=== PATIENT | female | born 1980 | race Two or more races ===

== ENCOUNTER 2021-09-23 14:43 | Outpatient (REF) | payer OTHER, SELFPAY ==
[2021-09-23 15:26] LABS: Influenza A PCR NEGATIVE (Negative); Influenza B PCR NEGATIVE (Negative); Resp Syncy Virus RNA Qual PCR NEGATIVE (Negative); SARS COV2 PCR INHOUSE NEGATIVE (Negative)
== END 2021-09-23 14:44 | disposition home or self-care (01) ==
LOC: HO.LNP 14:43
PROVIDERS: Visit Provider Internal Medicine
DX: Z20.822 Contact with and (suspected) exposure to COVID-19 (principal); R43.9 Unspecified disturbances of smell and taste
CPT/HCPCS: 0241U

== ENCOUNTER 2024-05-04 08:23 | Outpatient (AMB) | payer OTHER, SELFPAY ==
--- NOTE | 2024-05-04 08:26 | A.OFFPC_ITS ---
Vital Signs 05/04/24 08:38 Height 4 ft 11 in Weight 135 lb BMI 27.3 BP 104/70 Blood Pressure Location Lt brachial Position Sitting Pulse 74 Pulse Source Pulse Oximeter Pulse Oximetry (%) 97 Oxygen Delivery Method Room Air Intake Visit Reasons: Annual PE Intake Note: Pt is here today for her PE: Last papsmear 06/2023: pt never had a mammogram Allergies shellfish derived [SHELLFISH DERIVED] Allergy (Severe, Verified 05/04/24 08:42) ANAPHYLAXIS prochlorperazine [From COMPAZINE] Allergy (Unknown, Verified 05/04/24 08:42) ANAPHYLAXIS, seizures Compazine Allergy (Unknown, Uncoded 05/04/24 08:42) seizures shellfish Allergy (Unknown, Uncoded 05/04/24 08:42) anaphylaxis Medication List - Last Reconciled 05/04/24 by Doris José MD albuterol sulfate 90 mcg/actuation (ProAir HFA) 2 puffs inhalation Q6H PRN cetirizine 10 mg PO DAILY eszopiclone 1 mg PO BEDTIME levonorgestrel (Mirena) intrauterine lorazepam 0.5 mg PO DAILY montelukast 10 mg PO DAILY sertraline mg PO Tobacco use date assessed: 05/04/24 Dental Screening Dental Screen Date: 05/04/24 Did you have a dental visit in the last 12 months?: Yes Did you have a dental problem in the last 6 months where you did not have access to dental care?: No Was dental information given to patient?: Patient has dentist HPI Annual PE HPI Details 43-year-old lady here today for physical exam. She goes to [facility] for her routine Pap and pelvic exam, last done 08/12/2022 with normal findings. Currently on Mirena for control. Never had a mammogram screening. Has had COVID vaccines in the past but no booster, stopped getting flu vaccines, no Tdap seen on mass registry for vaccine She currently is being [facility], for chronic urticaria, rhino conjunctivitis, and mild intermittent asthma as well as shellfish allergy. On montelukast and Zyrtec, which has not been helping much, has an appointment with [facility] later this month, still waiting for her Xolair prescription to get filled. Needs refills on her albuterol inhaler once ProAir not Ventolin inhaler Still having recurrent low back pain, previously seen at [facility] pain management and received epidural steroid injection L4-L5 in the past, lost to follow-up after COVID started . Complains of pain in her left wrist, worse towards the end of the day. 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 Pain shoots to the middle 3 fingers accompanied by numbness and tingling and sometimes up to the elbow. Has been having recurrent anterior knee pain, worse with jogging, sometimes going up and down stairs feels like it is going to give way. No history of injury [facility] Medical History (Updated 05/04/24 @ 09:28 by Doris José MD) Right anterior knee pain Left wrist pain Depression with anxiety Lumbar spondylosis Shellfish allergy Allergic rhinoconjunctivitis Chronic urticaria Mild intermittent asthma Surgical History (Updated 05/04/24 @ 09:23 by Doris José MD) No pertinent past surgical history Family History (Updated 05/04/24 @ 09:26 by Doris José MD) Maternal Grandfather Colon cancer Father Bronchial asthma Paternal Grandfather Acute myocardial infarction Social History (Updated 05/04/24 @ 09:27 by Doris José MD) Housing: Condominium Patient Tobacco Use Status: Never used Tobacco e-Cigarette/Vaping Use: Never Used service: No Current occupational status: employed Current occupation: materials management manager Cognitive needs: No Hearing needs: No Vision needs: Yes Female Reproductive History Menstrual control method: progestin IUCD Date of last pap smear: 08/12/22 (Done at [facility] was not [facility], negative result) Questionnaire PHQ-9 Over the last 2 weeks, how often have you been bothered by any of the following problems? 1. Little interest or pleasure in doing things: not at all 2. Feeling down, depressed, or hopeless: not at all 3. Trouble falling or staying asleep, or sleeping too much: not at all 4. Feeling tired or having little energy: not at all 5. Poor appetite or overeating: not at all 6. Feeling bad about yourself - or that you are a failure or have let yourself or your family down: not at all 7. Trouble concentrating on things, such as reading the newspaper or watching television: not at all 8. Moving or speaking so slowly that other people could have noticed. Or the opposite - being so fidgety or restless that you have been moving around a lot more than usual: not at all 9. Thoughts that you would be better off or of hurting yourself in some way: not at all Total score: 0 Depression Screening Interpretation: Negative Depression Screening Done: Yes 72103 - PHQ-9 Billing: Yes Source: Developed by Drs. Michele Moseley, Nayla Meng, Narendra Godoy and colleagues, with an educational ellen from [employer] Thrive Questionnaire I am a: Patient What is your living situation today?: I have a steady place to live Within the past 12 months, did the food you bought not last and you didn't have the money to get more?: Never true Within the past 12 months, did you worry whether your food would run out before you got money to buy more?: Never true Do you have trouble paying for medicines?: No Do you have trouble getting transportation to medical appointments?: No Do you have trouble paying your heating and electricity bill?: No Do you have trouble taking care of your child, family member or friend?: No Do you have trouble with day-to-day activities such as bathing, preparing meals, shopping, managing finances, etc.?: No Are you currently unemployed and looking for a job?: No Are you interested in more education?: No Please select the resources that you would like help with: Housing/Long Term Currently or been in a relationship where the following occur: No concerns reported THRIVE Score: 0 AUDIT C Alcohol Use Questionnaire (AUDIT-C) 1. How often do you have a drink containing alcohol?: Never Total Score: 0 BRIJESH-7 AMB Questionnaire BRIJESH-7 Feeling nervous, anxious, or on edge: 0 = Not at all Not being able to stop or control worryin = Not at all Worrying too much about different things: 0 = Not at all Trouble relaxin = Not at all Being so restless that it is hard to sit still: 0 = Not at all Becoming easily annoyed or irritable: 0 = Not at all Feeling afraid as if something awful might happen: 0 = Not at all Total BRIJESH-7 score (0-4 normal; 5-9 mild; 10-14 moderate; 15-21 severe): 0 Source: Developed by Drs. Michele Moseley, Nayla Meng, Narendra Godoy and colleagues, with an educational ellen from [employer] BRIJESH-7 Assessment Billing BRIJESH-7 Assessment Tool: BRIJESH-7 Assessment 33817 Review of Systems Const Denies body aches, Denies fatigue, Denies fever(s), Denies headache(s) and Denies weakness Eyes Denies change in vision, Denies eye discharge, Denies itchy eyes and Reports req uires corrective lenses ENT Denies dizziness, Denies headache(s), Denies nasal congestion, Denies nasal discharge and Denies sore throat Card Denies chest pain, Denies lightheadedness, Denies palpitations and Denies dyspnea Resp Denies chest congestion, Denies cough, Denies dyspnea and Denies wheezing GI Denies abdominal pain, Denies change in bowel habits and Denies heartburn Denies hematuria, Denies urinary frequency, Denies dysuria and Denies urinary urgency Musc Reports as per HPI Skin/Breast Denies breast pain, Denies breast mass, Denies lesions and Denies rash Neuro Denies dizziness, Denies headache(s) and Denies weakness Psych Details: Followed at [facility] in [place] Reports no additional complaints Endo Denies fatigue, Denies polydipsia, Denies polyuria and Denies palpitations Thaddeus/Lymph Denies easy bruising Aller/Immun Denies itchy eyes, Denies seasonal rhinorrhea and Denies wheezing Physical exam (Primary Care) BMI result Body Mass Index 27.3 Tobacco/Smoking Status: Tobacco use Status Tobacco use date assessed 05/04/24 05/04/24 08:41 Patient Tobacco Use Status Never used Tobacco 05/04/24 08:41 e-Cigarette/Vaping Use Never Used 05/04/24 08:41 PHQ-9: PHQ-9 Score PHQ-9: Total score 0 05/04/24 08:26 Depression Screening Interpretation: Negative Currently or been in a relationship where the following occur: No concerns reported Advance Care Planning discussion: Completed/Scanned Date of discussion: 05/04/24 Who was present: Patient Forms completed: Health Care Proxy Time spent: 16-45 minutes Actual minutes spent: 16 Const General: no acute distress and alert Nutritional Appearance: average body habitus Orientation/consciousness: patient oriented x3 HENMT Head: Yes normocephalic and Yes atraumatic Ears: external ears normal, TM's normal bilaterally and EAC's normal General nose exam: Normal external nose present and No nasal discharge present Face and sinus: Yes face symmetric Mouth: Normal oral and palatal mucosa present, lip normal, tongue normal, oropharynx normal and moist mucous membranes Eyes Other: Wears corrective lenses General: appearance normal, both eyes and all related structures Alignment and Position: alignment normal Eyelids: Yes eyelids normal Conjunctivae: conjunctivae normal Sclerae: sclerae normal Pupils: Equal, round and reactive pupils present EOM: EOMs intact bilaterally Neck Neck: Yes full ROM, Yes no lymphadenopathy and Yes supple Thyroid: Thyroid normal Chest Breast/axilla inspection: normal inspection of the breasts Breast/axilla palpation: normal palpation of the breasts Resp Effort & Inspection: normal respiratory effort and able to speak in complete sentences Auscultation: clear to auscultation bilaterally Cardio Rate: regular rate Rhythm: regular rhythm Heart sounds: S1 normal heart sound present and S2 normal heart sound present GI Palpation (GI): Soft to palpation, nontender, no guarding and no masses Auscultation: normal bowel sounds General: Yes no CVA tenderness Back/Spine/Pelvis Back: no CVA tenderness and No back tenderness Skin General skin exam: no rashes or lesions noted Neuro General: patient oriented x3, gait normal, moves all extremities, Normal light touch and pain sensation, no focal motor deficits and CN's II-XI intact bilaterally Cranial nerves: Yes Equal, round and reactive pupils present Cognition (Neuro): normal cognition Gait exam (Neuro): Normal gait present Motor exam (neuro): 5/5 motor strength present throughout Extrem Other: No gross bone deformity, no joint swelling seen, slight crepitus noted on right knee Positive Phalen sign left, negative Tinel's General: Yes normal to inspection, Yes full ROM, Yes no joint enlargement, Yes no pedal edema and Yes normal gait Psych Appearance: grossly normal and well kempt Mental Status: mental status grossly normal Speech and movement: Normal speech and movement present Affect: normal affect Attitude: cooperative Thought process: Normal thought process present Thought content: Normal thought content present Immunizations Boostrix Tdap 2.5 Lf unit-8 mcg-5 Lf/0.5 mL intramuscular syringe Performing Provider: Doris José MD Performing Location: [facility] Administered by: Christa Strauss CMA on 05/04/24 08:56 Dose Route Admin Location Dispensed Lot Number Expiration Date NDC [place] 0.5 mL IM Left Deltoid 0.5 mL [id number] 05/20/26 [id number] [employer] VIS Given Date VIS Provided VIS Publication Date 05/04/24 Single Vaccine 21 Eligibility Eligibility Date Funding Source Not VFC Eligible 05/04/24 Private Assessment and Plan Assessment & Plan (1) Advanced directives, counseling/discussion: Code(s): Z71.89 - Other specified counseling Plan: Initiated the conversation about Advanced Directives. Advanced Directives help patients prepare for current and future decisions about their medical treatment and place of care. Discussed with patient that it is a process where a patients current condition and prognosis are reviewed, their wishes for information regarding their illness are elicited, and likely medical dilemmas are presented and options discussed. Healthcare proxy form completed today The form can be amended as needed, reviewed yearly and make changes as needed (2) Annual visit for general adult medical examination with abnormal findings: Code(s): Z00.01 - Encounter for general adult medical examination with abnormal findings Plan: Will check appropriate labs. Recommended dental visit every 6 months and regular eye exams, at least every 2 years. Take adequate calcium in diet and vitamin-D 3 at 2000 IU per cap once a day, in addition to weight-bearing exercises to help maintain good muscle tone and weight control. Instructed to do self-breast exam, and recommended to get yearly mammogram, scheduled reminded to get flu shot, has had COVID vaccine does not want to get the booster, up-to-date with Tdap, given today. Has not had her pneumonia vaccine yet, will give it on next visit (3) Shellfish allergy: Code(s): Z91.013 - Allergy to seafood (4) Allergic rhinoconjunctivitis: Code(s): J30.9 - Allergic rhinitis, unspecified; H10.10 - Acute atopic conjunctivitis, unspecified eye Plan: Currently [facility], currently on cetirizine and montelukast (5) Chronic urticaria: Code(s): L50.8 - Other urticaria Plan: Previously on Xolair, waiting for prescription to be approved, currently on montelukast and Zyrtec which has not really been helping, followed at [facility] (6) Mild intermittent asthma: Code(s): J45.20 - Mild intermittent asthma, uncomplicated Qualifiers: Asthma complication type: uncomplicated Qualified Code(s): J45.20 - Mild intermittent asthma, uncomplicated Plan: Refill prescription for ProAir inhaler (7) Left wrist pain: Code(s): M25.532 - Pain in left wrist Plan: Ordered nerve conduction study, prescription sent for left wrist brace to wear at night, may try applying Salonpas patch to affected area once or twice a day, or up massaged diclofenac gel to affected area 4 times a day as needed. Advised to rest affected joint, avoid flexion of wrist when sleeping at night (8) Right anterior knee pain: Code(s): M25.561 - Pain in right knee Plan: X-ray of right knee ordered may try massaging diclofenac gel to affected joint 3 to 4 times a day as needed (9) Depression with anxiety: Comment: [facility] in [place] Code(s): F41.8 - Other specified anxiety disorders Plan: Followed by psychiatry at [facility], doing well on lorazepam as needed and sertraline Orders: Orders Lipid Panel Today H10.10 - Acute atopic conjunctivitis, unspecified eye, J30.9 - Allergic rhinitis, unspecified, J45.20 - Mild intermittent asthma, un complicated, L50.8 - Other urticaria, Z00.01 - Encounter for general adult medical examination with abnormal findings, Z13.1 - Encounter for screening for diabetes mellitus, Z13.220 - Encounter for screening for lipoid disorders, Z91.013 - Allergy to seafood Vitamin D 25-OH Total Today H10.10 - Acute atopic conjunctivitis, unspecified eye, J30.9 - Allergic rhinitis, unspecified, J45.20 - Mild intermittent asthma, uncomplicated, L50.8 - Other urticaria, Z00.01 - Encounter for general adult medical examination with abnormal findings, Z13.1 - Encounter for screening for diabetes mellitus, Z13.220 - Encounter for screening for lipoid disorders, Z91.013 - Allergy to seafood MM tomosynthesis screening BI Today Z12.31 - Encounter for screening mammogram for malignant neoplasm of breast NE nerve conduction velocity Today M25.532 - Pain in left wrist XR knee RT 4V Today M25.561 - Pain in right knee TDaP Immunization Today Z23 - Encounter for immunization Alanine Aminotransferase Today H10.10 - Acute atopic conjunctivitis, unspecifi ed eye, J30.9 - Allergic rhinitis, unspecified, J45.20 - Mild intermittent asthma, uncomplicated, L50.8 - Other urticaria, Z00.01 - Encounter for general adult medical examination with abnormal findings, Z13.1 - Encounter for screening for diabetes mellitus, Z13.220 - Encounter for screening for lipoid disorders, Z91.013 - Allergy to seafood Aspartate Amino Transferase Today H10.10 - Acute atopic conjunctivitis, unspecified eye, J30.9 - Allergic rhinitis, unspecified, J45.20 - Mild intermittent asthma, uncomplicated, L50.8 - Other urticaria, Z00.01 - Encounter for general adult medical examination with abnormal findings, Z13.1 - Encounter for screening for diabetes mellitus, Z13.220 - Encounter for screening for lipoid disorders, Z91.013 - Allergy to seafood Basic Metabolic Panel Fasting Today H10.10 - Acute atopic conjunctivitis, unspecified eye, J30.9 - Allergic rhinitis, unspecified, J45.20 - Mild intermittent asthma, uncomplicated, L50.8 - Other urticaria, Z00.01 - Encounter for general adult medical examination with abnormal findings, Z13.1 - Encounter for screening for diabetes mellitus, Z13.220 - Encounter for screening for lipoid disorders, Z91.013 - Allergy to seafood Complete Blood Count Auto Diff Today H10.10 - Acute atopic conjunctivitis, unspecified eye, J30.9 - Allergic rhinitis, unspecified, J45.20 - Mild intermittent asthma, uncomplicated, L50.8 - Other urticaria, Z00.01 - Encounter for general adult medical examination with abnormal findings, Z13.1 - Encounter for screening for diabetes mellitus, Z13.220 - Encounter for screening for lipoid disorders, Z91.013 - Allergy to seafood Medications: New arm brace (Wrist Brace Medium) As directed 1 ea 0RF M25.532 - Pain in left wrist Changed From albuterol sulfate 90 mcg/actuation (ProAir HFA) 2 puffs inhalation Q6H PRN To albuterol sulfate 90 mcg/actuation Patient wants ProAir HFA 2 puffs inhalation Q6H PRN 8.5 grams 0RF shortness of breath or wheezing Coding Level of Care Code Est Pt Prev Care 40-64y(83335) Diagnoses Advanced directives, counseling/discussion Z71.89 Annual visit for general adult medical examination with abnormal findings Z00.01 Shellfish allergy Z91.013 Allergic rhinoconjunctivitis J30.9; H10.10 Chronic urticaria L50.8 Mild intermittent asthma without complication J45.20 Asthma complication type: uncomplicated Left wrist pain M25.532 Right anterior knee pain M25.561 Depression with anxiety F41.8 Additional Codes BRIJESH-7 Assessment Billing - BRIJESH-7 Assessment Tool: BRIJESH-7 Assessment 26857 ([id number]) Vital Signs *Quality* - Advance Care Planning discussion: Completed/Scanned ([id number]) Vital Signs *Quality* - Time spent: 16-45 minutes ([id number])
[2024-05-04 08:38] VITALS: BP 104/70; PULSE 74; O2SAT 97; BMI 27.3
== END 2024-05-04 09:25 | disposition home or self-care (01) ==
PROVIDERS: PCP Internal Medicine; Visit Provider Internal Medicine
DX: Z00.01 Encounter for general adult medical examination with abnormal findings (principal); J45.20 Mild intermittent asthma, uncomplicated; J30.9 Allergic rhinitis, unspecified; Z23 Encounter for immunization; Z91.013 Allergy to seafood; L50.8 Other urticaria; M25.532 Pain in left wrist; M25.561 Pain in right knee; F41.8 Other specified anxiety disorders
CPT/HCPCS: 1123F; 90471; 90715; 99214; 99396; 99497

== ENCOUNTER 2024-05-04 09:22 | Outpatient (REF) | payer OTHER, SELFPAY ==
--- NOTE | ~2024-05-04 | XR_ITS ---
EXAMINATION: XR KNEE, RIGHT CLINICAL INFORMATION: Right knee pain. COMPARISON: None available. TECHNIQUE: Four views of the right knee. FINDINGS: Alignment is anatomic. Joint spaces are maintained. No displaced fracture. No significant joint effusion. XR/XR knee RT 4V IMPRESSION: No acute abnormality.
[2024-05-04 10:06] LABS: MANUAL DIFF FLAG NO
[2024-05-04 10:09] LABS: Basophils Percent Auto 0.2 % (0-2); Eosinophils Absolute Auto 0.2 X10*3/uL (0.0-0.4); Eosinophils Percent Auto 3.9 % (0-4); Hematocrit 39.9 % (37.0-47.0); Hemoglobin 13.6 g/dl (12.0-16.0); Imm Gran Abs Auto 0.02 X10*3/uL (0.00-0.03); Imm Gran Pct Auto 0.3 % (0.0-0.4); Lymphocytes Absolute Auto 2.5 X10*3/uL (1.2-4.9); Lymphocytes Percent Auto 42.9 % (20-40); Mean Corpuscular HGB Conc 34.1 g/dl (31.0-35.0); Mean Corpuscular Hemoglobin 30.4 pg (27.0-33.0); Mean Corpuscular Volume 89.3 fL (80.0-98.0); Mean Platelet Volume 9.4 fL (9.4-12.3); Monocytes Absolute Auto 0.5 X10*3/uL (0.1-1.2); Monocytes Percent Auto 7.8 % (2-11); Neutrophils Absolute Auto 2.7 x10*3/uL (2.0-8.3); Neutrophils Percent Auto 44.9 % (45-73); Platelet Count 240 X10*3/uL (160-400); Red Blood Count 4.47 X10*6/uL (4.20-5.50); Red Cell Distribution Width 12.4 % (11.0-16.0); White Blood Count 5.9 X10*3/uL (4.8-10.8)
[2024-05-04 11:20] LABS: Alanine Aminotransferase 22 U/L (0-31); Anion Gap 10 (12-20); Aspartate Amino Transferase 19 U/L (5-31); Blood Urea Nitrogen 13 mg/dL (9-16); Calcium 9.2 mg/dL (8.4-10.2); Carbon Dioxide 26 mmol/L (22-29); Chloride 106 mmol/L (96-108); Cholesterol 218 mg/dL (<200); Estimated Glomerular Filt Rate > 60; Glucose Fasting 89 mg/dL (60-99); HDL Cholesterol 42 mg/dL (>40); LDL Cholesterol Calculated 154 mg/dL (<100); Potassium 3.6 mmol/L (3.3-5.1); Sodium 138 mmol/L (135-145); Triglycerides 111 mg/dL (<150)
[2024-05-04 11:39] LABS: Vitamin D 25-OH Total 16.5 ng/mL (>30)
== END 2024-05-04 09:23 | disposition home or self-care (01) ==
LOC: HO.HMGCX 09:22
PROVIDERS: PCP Internal Medicine; Visit Provider Internal Medicine
DX: M25.561 Pain in right knee (principal); J45.20 Mild intermittent asthma, uncomplicated; L50.8 Other urticaria; J30.9 Allergic rhinitis, unspecified; H10.10 Acute atopic conjunctivitis, unspecified eye; Z91.013 Allergy to seafood; Z13.220 Encounter for screening for lipoid disorders; Z13.1 Encounter for screening for diabetes mellitus; Z00.01 Encounter for general adult medical examination with abnormal findings
CPT/HCPCS: 36415; 73564; 80048; 80061; 82306; 84450; 84460; 85025

== ENCOUNTER 2024-05-30 08:03 | Outpatient (REF) | payer OTHER, SELFPAY ==
--- NOTE | 2024-05-30 08:05 | EMG_ITS ---
Left median and ulnar motor and sensory studies were performed. Left radial sensory study was performed. The left median and lateral antecubital brachial sensory studies were performed and paraspinal muscles were tested with a needle. IMPRESSION: Mild left ulnar nerve slowing across elbow. Otherwise, no significant abnormality noted. MD ROSA Suero/KAYLA / [id number]
== END 2024-05-30 08:04 | disposition home or self-care (01) ==
LOC: HO.NEURO 08:03
PROVIDERS: PCP Internal Medicine; Visit Provider Internal Medicine
DX: M25.532 Pain in left wrist (principal)
CPT/HCPCS: 95886; 95910

== ENCOUNTER → 2024-06-17 10:15 | Outpatient (BNV) | payer OTHER, SELFPAY | PROVIDERS: PCP Internal Medicine; Visit Provider Internal Medicine | DX: Z12.31 Encounter for screening mammogram for malignant neoplasm of breast (principal) | CPT/HCPCS: 77063; 77067 ==

== ENCOUNTER 2024-06-17 10:26 | Outpatient (REF) | payer OTHER, SELFPAY ==
--- NOTE | ~2024-06-17 | MM_ITS ---
EXAMINATION: MM SCREENING DIGITAL BREAST TOMOSYNTHESIS, BILATERAL CLINICAL INFORMATION: Screening. Asymptomatic. COMPARISON: Mammography: Comparison is made with available priors TECHNIQUE: Digital breast mammography with tomosynthesis is performed in both the craniocaudal and mediolateral oblique views along with computer-aided detection (CAD). FINDINGS: There are scattered areas of fibroglandular density (ACR BI-RADS breast composition Category b). There are no significant masses, abnormal calcifications, or other abnormalities. MM/MM tomosynthesis screening BI IMPRESSION: No mammographic evidence of malignancy. ASSESSMENT: BI-RADS BI-RADS 1 - Negative RECOMMENDATION: Routine annual mammography screening. 1 year F/U This examination should not preclude the clinical evaluation of a suspicious palpable abnormality. This patient's information was entered into a reminder system with a target due date for their next mammogram. Electronically signed by: Moraima Stone DO 06/30/2024 08:55 AM EDT
== END 2024-06-17 10:27 | disposition home or self-care (01) ==
LOC: HO.MAMMO 10:26
PROVIDERS: PCP Internal Medicine; Visit Provider Internal Medicine
DX: Z12.31 Encounter for screening mammogram for malignant neoplasm of breast (principal)
CPT/HCPCS: 77063; 77067

== ENCOUNTER 2025-06-23 10:45 | Outpatient (REF) | payer OTHER, SELFPAY ==
--- NOTE | ~2025-06-23 | MM_ITS ---
EXAMINATION: MM SCREENING DIGITAL BREAST TOMOSYNTHESIS, BILATERAL CLINICAL INFORMATION: Screening. Asymptomatic. COMPARISON: Mammography: Comparison is made with available priors TECHNIQUE: Digital breast mammography with tomosynthesis is performed in both the craniocaudal and mediolateral oblique views along with computer-aided detection (CAD). FINDINGS: There are scattered areas of fibroglandular density (ACR BI-RADS breast composition Category b). There are no significant masses, abnormal calcifications, or other abnormalities. MM/MM tomosynthesis screening BI IMPRESSION: No mammographic evidence of malignancy. ASSESSMENT: BI-RADS BI-RADS 1 - Negative RECOMMENDATION: Routine annual mammography screening. 1 year F/U This examination should not preclude the clinical evaluation of a suspicious palpable abnormality. This patient's information was entered into a reminder system with a target due date for their next mammogram. Electronically signed by: Moraima Stone DO 06/26/2025 02:36 PM EDT
--- OUTSIDE RECORDS SUMMARY | 2025-06-23 10:48 | XMS_ITS | Clinical Summary ---
Author Organization [facility] Address [address] [place] [address] Care Team Providers Care Scrap Kettle Tender Name Role Phone Lenny Louie MD Primary Care Provider [phone] Allergies Active Allergy Reactions Criticality Noted Date Comments Prochlorperazine Other (See Comments) Low Pt unsure of reaction at thistime Iodine Hives Medium 02/17/2022 Phenothiazines Other (See Comments) Low 02/17/2022 Pt unsure of reaction but does not take Shellfish Anaphylaxis High 03/04/2022 Medications Medication Sig Dispensed Refills Start Date End Date Status eszopiclone (LUNESTA) 2 MG TABS 0 04/15/2022 Active albuterol (ACCUNEB) 0.63 MG/3ML nebulizer soln (NICU) by Inhaled route 4 (four) times a day as needed. 0 Active LORazepam (ATIVAN) 0.5 MG tablet TAKE ONE (1) TABLET BY MOUTH ONCE A DAY, NEEDED FOR SEVERE ANXIETY. USE SPARINGLY. 0 03/25/2023 Active cetirizine (ZyrTEC) 10 MG tablet Take 1 tablet (10 mg total) by mouth daily. 0 12/22/2023 Active montelukast (SINGULAIR) 10 MG tablet Take 1 tablet (10 mg total) by mouth every night at bedtime. 0 12/22/2023 Active Active Problems Problem Noted Date Diagnosed Date Chronic urticaria 02/17/2022 Social History Tobacco Use Types Packs/Day Years Used Date Smoking Tobacco: Never Assessed Sex and Gender Information Value Date Recorded Sex Assigned at Female 02/12/2022 4:12 PM EDT Gender Identity Not on file Sexual Orientation Not on file Job Start Date Occupation Industry Not on file Not on file Not on file Last Filed Vital Signs Vital Sign Reading Time Taken Comments Blood Pressure 116/71 01/28/2024 1:00 PM EDT Pulse 94 01/28/2024 1:00 PM EDT Temperature 36.8 C (98.2 F) 01/28/2024 1:00 PM EDT Respiratory Rate 18 01/28/2024 1:00 PM EDT Oxygen Saturation 100% 01/28/2024 1:00 PM EDT Inhaled Oxygen Concentration - - Weight 56.1 kg (123 lb 9.6 oz) 01/28/2024 1:00 P M EDT Height 149.9 cm (4' 11 ) 01/28/2024 1:00 PM EDT Body Mass Index 24.96 01/28/2024 1:00 PM EDT Plan of Treatment Health Maintenance Due Date Last Done Comments Hepatitis B Vaccines (1 of 3 - 3-dose series) 1981 Hepatitis C Screening 1981 Depression Screening 1993 BMI Counseling 1999 Preventative Health Evaluation 1999 DTap / Tdap / Td (1 - Tdap) 2000 Cervical Cancer Screening (P ap Smear) 2002 COVID-19 Vaccine (2024-2 6 season) 2025 02/14/2021 Influenza Vaccine (#1) 2025 07/19/2008 Pneumococcal Vaccine Aged Out No long er eligible based on patient's age to complete this topic RSV Ped < 20 months Aged Out No longe r eligible based on patient's age to complete this topic Care Teams Scrap Kettle Tender Relationship Specialty Start Date End Date Lenny Louie MD [address] [place] [address] [place] [address] PCP - General Internal Medicine 01/20/24
--- OUTSIDE RECORDS SUMMARY | 2025-06-23 10:48 | XMS_ITS ---
[facility] Name [facility] Care Team Organization Name Specialty Phone Email Start Date End Da te [facility] INA SALGADO Primary Care 08/11/2022 05/22/20 24
--- OUTSIDE RECORDS SUMMARY | 2025-06-23 10:48 | XMS_ITS | Patient Health Record ---
Author Organization Formerly [facility] enter Address [address] [place] [id number] Support Name Relationship Address Phone Miky Quigley Guarantor Unknown Reason For Referral No Information Immunizations Vaccine Route Administration Date Status Comme nts COVID-19 Vaccine(Moderna) 1st dose IM Intramuscular 01/14/2021 Administered COVID-19 Vaccine(Moderna) 2nd dose Unknown 02/14/2021 Administered Per verbal repor t of pt Plan Of Treatment No Information Insurance Providers Payer Name Payer Address Payer Phone Subscriber Number Group Number Insured Name Patient Relationship to Insured Coverage Start Date Coverage End Date Medicare A NGS PPS UB [address] [place] [id number] Miky Quigley Self - patient is the insured
--- OUTSIDE RECORDS SUMMARY | 2025-06-23 10:48 | XMS_ITS | Clinical Summary ---
[facility] Organization [facility] Address [address] [place] [address] Care Team Providers Care [employer] Biology Teacher Name Role Phone Lenny Louie MD Primary Care Provider Surgical History Surgery Date Site/Laterality Comments SECTION PROCEDURE: HISTORICAL DELIVERY; COMMENT: two Medical History Medical History Date Comments Asthma DX:Asthma Family History Medical History Relation Name Comments Celiac disease Father Coronary artery disease Father's side 1 u ncles with [place] Celiac disease Sister 1 Breast cancer Neg Hx Colon cancer Neg Hx Diabetes Neg Hx Relation Name Status Comments Brother Alive Father Alive Father's side 1 Father's side 2 Mother Alive Sister 1 Sister 2 Alive Sister 3 Alive Sister 4 Alive Social History Tobacco Use Types Packs/Day Years Used Date Smoking Tobacco: Never Smokeless Tobacco: Never Alcohol Use Standard Drinks/Week Comments No 0 (1 standard drink = 0.6 oz pur e alcohol) Comments Unknown Sex and Gender Information Value Date Recorded Sex Assigned at Not on file Legal Sex Female 1:09 PM EST Gender Identity Not on file Sexual Orientation Not on file Obstetrics History Plan of Treatment Health Maintenance Due Date Last Done Comments Breast Cancer Screening 1981 DTaP,Tdap,and Td Vaccines (1 - Tdap) 2000 Hepatitis B Vaccines (1 of 3 - 19+ 3-dose series) 2000 Cervical Cancer Screening: P ap Smear 2002 HIV Screening 09/16/2022 Hepatitis C Screening 09/16/2022 Social Influencers of Health Screening 09/16/2022 Depression Screening 10/04/2024 COVID-19 Vaccine ( - 2023-2 5 season) 2025 Influenza Vaccine (#1) 2025 07/19/2008 HIB Vaccines Aged Out No longer eligi ble based on patient's age to complete this topic HPV Vaccines Aged Out No longer eligi ble based on patient's age to complete this topic Hepatitis A Vaccines Aged Out No long er eligible based on patient's age to complete this topic IPV Vaccines Aged Out No longer eligi ble based on patient's age to complete this topic MMR Vaccines Aged Out No longer eligi ble based on patient's age to complete this topic Meningococcal ACWY Vaccine Aged Out N o longer eligible based on patient's age to complete this topic Meningococcal B Vaccine Aged Out No l onger eligible based on patient's age to complete this topic Pneumococcal Vaccine: Pediat rics (0 to 5 Years) and At-Risk Patients (6 to 49 Years) Aged Out No longer eligi ble based on patient's age to complete this topic RSV Immunization Patients Un shiela 20 months Aged Out No longer eligible b ased on patient's age to complete this topic Varicella Vaccines Aged Out No longer eligible based on patient's age to complete this topic Care Teams High School Biology Teacher Relationship Specialty Start Date End Date Lenny Louie MD [address] [place] [address] Dr [address] IMANI Rasmussen PCP - General 01/20/24
== END 2025-06-23 10:46 | disposition home or self-care (01) ==
LOC: HO.MAMMO 10:45
PROVIDERS: PCP Internal Medicine; Visit Provider Internal Medicine
DX: Z12.31 Encounter for screening mammogram for malignant neoplasm of breast (principal)
CPT/HCPCS: 77063; 77067

== ENCOUNTER → 2025-06-23 10:45 | Outpatient (BNV) | payer OTHER, SELFPAY | PROVIDERS: PCP Internal Medicine; Visit Provider Internal Medicine | DX: Z12.31 Encounter for screening mammogram for malignant neoplasm of breast (principal) | CPT/HCPCS: 77063; 77067 ==

== ENCOUNTER 2025-07-18 16:00 | Outpatient (AMB) | payer OTHER, SELFPAY ==
--- NOTE | 2025-07-18 16:02 | A.OFFPC_ITS ---
Vital Signs 07/18/25 16:07 Height 4 ft 11 in Weight 142 lb BMI 28.7 BP 112/80 Blood Pressure Location Lt brachial Position Sitting Respiration 16 Pulse 89 Pulse Source Pulse Oximeter Pulse Oximetry (%) 100 Oxygen Delivery Method Room Air Intake Visit Reasons: PE Intake Note: Pt is here today for her PE: Last mammogram 06/23/25, papsmear 08/12/22 Gathering Machine Feeder Required: No Allergies shellfish derived (SHELLFISH DERIVED) Allergy (Severe, Verified 07/18/25 16:23) ANAPHYLAXIS prochlorperazine (From COMPAZINE) Allergy (Unknown, Verified 07/18/25 16:23) ANAPHYLAXIS, seizures Compazine Allergy (Unknown, Uncoded 07/18/25 16:23) seizures shellfish Allergy (Unknown, Uncoded 07/18/25 16:23) anaphylaxis Medication List - Last Reconciled 07/18/25 by Doris José MD albuterol sulfate 90 mcg/actuation 2 puffs inhalation Q6H PRN albuterol sulfate 90 mcg/actuation (ProAir RespiClick) 2 inhalations inhalation Q6H PRN arm brace (Wrist Brace Medium) As directed cetirizine 10 mg PO DAILY eszopiclone 3 mg PO BEDTIME PRN levonorgestrel (Mirena) intrauterine lorazepam 0.5 mg PO DAILY montelukast 10 mg PO DAILY omalizumab (Xolair) 300 mg subcut Q4W Tobacco use date assessed: 07/18/25 Dental Screening Dental Screen Date: 07/18/25 Did you have a dental visit in the last 12 months?: Yes Did you have a dental problem in the last 6 months where you did not have access to dental care?: No Was dental information given to patient?: Patient has dentist HPI PE HPI Details 44 year-old lady here today for physical exam. She goes to [facility] for her routine Pap and pelvic exam, last done 08/12/2022 with normal findings. Currently on Mirena for control. Last mammogram was done 06/23/2025 with benign findings Has had COVID vaccines in the past but no booster, flu vaccine given today., no Tdap seen on [place] registry for vaccine She [facility], for chronic urticaria, rhino conjunctivitis, and mild intermittent asthma as well as shellfish allergy. On montelukast and Zyrtec, now on Xolair injected once a month and uses albuterol inhaler as needed for episodes of bronchospasm and wheezing [facility] Medical History (Updated 07/18/25 @ 17:06 by Doris José MD) Dyslipidemia Vitamin D deficiency Depression with anxiety Lumbar spondylosis Shellfish allergy Allergic rhinoconjunctivitis Chronic urticaria Mild intermittent asthma Surgical History No pertinent past surgical history Family History Maternal Grandfather Colon cancer Father Bronchial asthma Paternal Grandfather Acute myocardial infarction Social History Housing: [facility] Patient Tobacco Use Status: Never used Tobacco e-Cigarette/Vaping Use: Never Used service: No Current occupational status: employed Current occupation: floor manager Cognitive needs: No Hearing needs: No Vision needs: Yes Questionnaire PHQ-9 Over the last 2 weeks, how often have you been bothered by any of the following problems? 1. Little interest or pleasure in doing things: not at all 2. Feeling down, depressed, or hopeless: not at all 3. Trouble falling or staying asleep, or sleeping too much: not at all 4. Feeling tired or having little energy: not at all 5. Poor appetite or overeating: not at all 6. Feeling bad about yourself - or that you are a failure or have let yourself or your family down: not at all 7. Trouble concentrating on things, such as reading the newspaper or watching television: not at all 8. Moving or speaking so slowly that other people could have noticed. Or the opposite - being so fidgety or restless that you have been moving around a lot more than usual: not at all 9. Thoughts that you would be better off or of hurting yourself in some way: not at all Total score: 0 Depression Screening Interpretation: Negative (sees Montana Gay , psychiatric nurse practitioner at [facility] in [place] ) Depression Screening Done: Yes 27458 - PHQ-9 Billing: Yes Source: Developed by Drs. Michele Moseley, Nayla Meng, Narendra Godoy and colleagues, with an educational ellen from [employer]. Thrive Questionnaire Date Thrive assessed: 07/18/25 I am a: Patient What is your living situation today?: I have a steady place to live Within the past 12 months, did the food you bought not last and you didn't have the money to get more?: Never true Within the past 12 months, did you worry whether your food would run out before you got money to buy more?: Never true Do you have trouble paying for medicines?: No Do you have trouble getting transportation to medical appointments?: No Do you have trouble paying your heating and electricity bill?: No Do you have trouble taking care of your child, family member or friend?: No Do you have trouble with day-to-day activities such as bathing, preparing meals, shopping, managing finances, etc.?: No Are you currently unemployed and looking for a job?: No Are you interested in more education?: No Please select the resources that you would like help with: None Currently or been in a relationship where the following occur: No concerns reported THRIVE Score: 0 AUDIT C Alcohol Use Questionnaire (AUDIT-C) 1. How often do you have a drink containing alcohol?: Never Total Score: 0 Score Reviewed/Action Taken: Yes BRIJESH-7 AMB Questionnaire BRIJESH-7 Date BRIJESH - 7 assessed: 07/18/25 Feeling nervous, anxious, or on edge: 0 = Not at all Not being able to stop or control worryin = Not at all Worrying too much about different things: 0 = Not at all Trouble relaxin = Not at all Being so restless that it is hard to sit still: 0 = Not at all Becoming easily annoyed or irritable: 0 = Not at all Feeling afraid as if something awful might happen: 0 = Not at all Total BRIJESH-7 score (0-4 normal; 5-9 mild; 10-14 moderate; 15-21 severe): 0 Source: Developed by Drs. Michele Moseley, Nayla Meng, Narendra Godoy and colleagues, with an educational ellen from [employer]. BRIJESH-7 Assessment Billing BRIJESH-7 Assessment Tool: BRIJESH-7 Assessment 67898 (harry Gay , psychiatric nurse practitioner at [facility] in [place] ) Review of Systems Const Denies fatigue, Denies headache(s) and Denies weakness Eyes Details: She sees an eye doctor in [place] Denies itchy eyes and Reports requires corrective lenses ENT Details: Currently sees a [facility] allergy and immunology clinic in [place] Reports no additional complaints and Denies headache(s) Card Denies chest pain, Denies lightheadedness, Denies palpitations and Denies dyspnea Resp Denies chest congestion, Denies cough, Denies dyspnea and Denies wheezing GI Denies abdominal pain, Denies change in bowel habits and Denies heartburn Denies hematuria, Denies urinary frequency, Denies dysuria and Denies urinary urgency Musc Reports as per HPI Skin/Breast Denies breast pain, Denies breast mass, Denies lesions and Denies rash Neuro Denies headache(s) and Denies weakness Psych Details: harry Gay , psychiatric nurse practitioner at [facility] in [place] Reports no additional complaints Endo Denies fatigue and Denies palpitations Thaddeus/Lymph Denies easy bruising Aller/Immun Denies itchy eyes, Denies seasonal rhinorrhea and Denies wheezing Physical exam (Primary Care) Vital Signs: Last Vital Signs Pulse 89 07/18/25 16:07 Resp 16 07/18/25 16:07 BP 112/80 07/18/25 16:07 Pulse Ox 100 07/18/25 16:07 Oxygen Delivery Method Room Air 07/18/25 16:07 BMI result Body Mass Index 28.7 Tobacco/Smoking Status: Tobacco use Status Tobacco use date assessed 07/18/25 07/18/25 16:04 Patient Tobacco Use Status Never used Tobacco 07/18/25 16:02 e-Cigarette/Vaping Use Never Used 07/18/25 16:02 PHQ-9: PHQ-9 Score PHQ-9: Total score 0 07/18/25 16:04 Depression Screening Interpretation: Negative (harry Gay , psychiatric nurse practitioner at [facility] in [place] ) Thrive Assessment: Date of Thrive Assessment Date Thrive assessed 07/18/25 07/18/25 16:04 Currently or been in a relationship where the following occur: No concerns reported Advance Care Planning discussion: Completed/Scanned Date of discussion: 07/18/25 Who was present: Patient Forms completed: Health Care Proxy Time spent: 16-45 minutes Actual minutes spent: 2 Const General: no acute distress and alert Nutritional Appearance: average body habitus Orientation/consciousness: patient oriented x3 HENCT Head: Yes normocephalic Ears: external ears normal, TM's normal bilaterally and EAC's normal General nose exam: Normal external nose present and No nasal discharge present Face and sinus: Yes face symmetric Mouth: Normal oral and palatal mucosa present, lip normal, tongue normal and moist mucous membranes Eyes Other: Wears corrective lenses General: appearance normal, both eyes and all related structures Alignment and Position: alignment normal Eyelids: Yes eyelids normal Conjunctivae: conjunctivae normal Sclerae: sclerae normal Pupils: Equal, round and reactive pupils present EOM: EOMs intact bilaterally Neck Neck: Yes full ROM, Yes no lymphadenopathy and Yes supple Thyroid: Thyroid normal Chest Breast/axilla inspection: normal inspection of the breasts Breast/axilla palpation: normal palpation of the breasts Resp Effort & Inspection: normal respiratory effort and able to speak in complete sentences Auscultation: clear to auscultation bilaterally Cardio Rate: regular rate Rhythm: regular rhythm Heart sounds: S1 normal heart sound present and S2 normal heart sound present GI Palpation (GI): Soft to palpation, nontender, no guarding and no masses Auscultation: normal bowel sounds General: Yes no CVA tenderness Back/Spine/Pelvis Back: no CVA tenderness Skin General skin exam: no rashes or lesions noted Neuro General: patient oriented x3, gait normal, moves all extremities, Normal light touch and pain sensation, no focal motor deficits and CN's II-XI intact bilaterally Cranial nerves: Yes Equal, round and reactive pupils present Cognition (Neuro): normal cognition Gait exam (Neuro): Normal gait present Motor exam (neuro): 5/5 motor strength present throughout Extrem General: Yes normal to inspection, Yes full ROM, Yes no joint enlargement, Yes no pedal edema and Yes normal gait Psych Appearance: grossly normal and well kempt Mental Status: mental status grossly normal Speech and movement: Normal speech and movement present Affect: normal affect Office Procedures Flu Questionnaire Does the patient have a severe egg allergy?: No Does the patient have severe life threatening allergies?: No Does the patient have a fever or illness today?: No Has the patient ever had Guillain-Herrick Syndrome?: No Has the patient ever had any past reaction to a flu shot?: No Immunizations Fluarix 3950-1799 (PF) 45 mcg (15 mcg x 3)/0.5 mL IM syringe Performing Provider: Doris José MD Performing Location: [facility] Administered by: Christa Strauss CMA on 07/18/25 16:22 Dose Route Admin Location Dispensed Lot Number Expiration Date [facility] Specialist 0.5 mL IM Left Deltoid 0.5 mL [id number] 04/02/26 [id number] [employer] VIS Given Date VIS Provided VIS Publication Date 07/18/25 Single Vaccine 24 Eligibility Eligibility Date Funding Source Not [facility] Eligible 07/18/25 Private Coding Level of Care Code Est Pt Prev Care 40-64y(49613) Diagnoses Annual visit for general adult medical examination with abnormal findings Z00.01 Vitamin D deficiency E55.9 Dyslipidemia E78.5 Shellfish allergy Z91.013 Depression with anxiety F41.8 Allergic rhinoconjunctivitis J30.9; H10.10 Mild intermittent asthma without complication J45.20 Asthma complication type: uncomplicated Insomnia, unspecified type G47.00 Insomnia type: unspecified Advance directive discussed with patient Z71.89 Lumbar spondylosis M47.816 Additional Codes PHQ-9 - 69448 - PHQ-9 Billing: Yes ([id number]) BRIJESH-7 Assessment Billing - BRIJESH-7 Assessment Tool: BRIJESH-7 Assessment 01294 ([id number]) Vital Signs *Quality* - Advance Care Planning discussion: Completed/Scanned ([id number]) Vital Signs *Quality* - Time spent: 16-45 minutes ([id number]) Assessment & Plan Assessment & Plan (1) Annual visit for general adult medical examination with abnormal findings: Code(s): Z00.01 - Encounter for general adult medical examination with abnormal findings Plan: Fasting labs ordered today. . Recommended dental visit every 6 months and regular eye exams, at least every 2 years. Take adequate calcium in diet and vitamin-D 3 at 2000 IU per cap once a day, in addition to weight-bearing exercises to help maintain good muscle tone and weight control. Instructed to do self-breast exam, and continue to get yearly mammogram. Up-to-date with her cervical cancer screening, goes to [facility]. flu vaccine given today. Declines getting COVID booster (2) Vitamin D deficiency: Code(s): E55.9 - Vitamin D deficiency, unspecified Category: Medical Plan: Prescription sent for cholecalciferol 82188 units per capsule to take once a week for the next 3 months once finished with taking prescription, continue taking [id number]-[id number] vitamin-D 3 at 2000 units daily (3) Dyslipidemia: Code(s): E78.5 - Hyperlipidemia, unspecified Category: Medical Plan: Fasting lipid panel ordered. LDL cholesterol elevated last year. Stressed importance of adherence to low-cholesterol diet and regular exercise, at least 30 minutes 3 to 4 times a week. Advised patient to make healthy food choices, eat more fruits, vegetables, whole grains, wild caught fish and low-fat dairy. Limit amount of meat and fried or fatty food products, as well as processed foods and fast foods. (4) Shellfish allergy: Code(s): Z91.013 - Allergy to seafood Category: Medical Plan: Patient has EpiPen (5) Depression with anxiety: Comment: sees Montana Gay , psychiatric nurse practitioner at [facility] in [place] Code(s): F41.8 - Other specified anxiety disorders Category: Medical Plan: Currently followed at [facility] in [place], takes lorazepam as needed for acute anxiety attacks. (6) Allergic rhinoconjunctivitis: Code(s): J30.9 - Allergic rhinitis, unspecified; H10.10 - Acute atopic conjunctivitis, unspecified eye Category: Medical Plan: Currently being seen by catheterization laboratory technician, on cetirizine and montelukast (7) Mild intermittent asthma: Code(s): J45.20 - Mild intermittent asthma, uncomplicated Category: Medical Qualifiers: Asthma complication type: uncomplicated Qualified Code(s): J45.20 - Mild intermittent asthma, uncomplicated Plan: Currently followed by [facility], asthma controlled on Xolair injected once a month, and using albuterol inhaler as needed and montelukast 10 mg daily. Flu shot given today (8) Insomnia: Code(s): G47.00 - Insomnia, unspecified Qualifiers: Insomnia type: unspecified Qualified Code(s): G47.00 - Insomnia, unspecified Plan: Currently taking eszopiclone 3 mg 1 tablet at bedtime as needed for difficulty sleeping (9) Advance directive discussed with patient: Code(s): Z71.89 - Other specified counseling Plan: Initiated the conversation about Advanced Directives. Advanced Directives help patients prepare for current and future decisions about their medical treatment and place of care. Discussed with patient that it is a process where a patients current condition and prognosis are reviewed, their wishes for information regarding their illness are elicited, and likely medical dilemmas are presented and options discussed. Healthcare proxy form completed today. The form can be amended as needed, reviewed yearly and make changes as needed (10) Lumbar spondylosis: Comment: Seen by [facility] pain management in 2020, history of lumbar epidural steroid injection L4-L5 Code(s): M47.816 - Spondylosis without myelopathy or radiculopathy, lumbar region Category: Medical Plan: Handicap placard application form completed and given back to patient, copy placed in medical record Orders: Orders Influenza [id number] Immunization Today Z23 - Encounter for immunization Lipid Panel Today E55.9 - Vitamin D deficiency, unspecified, E78.5 - Hyperlipidemia, unspecified Vitamin D 25-OH Total Today E55.9 - Vitamin D deficiency, unspecified, E78.5 - Hyperlipidemia, unspecified Glucose Fasting Today E55.9 - Vitamin D deficiency, unspecified, E78.5 - Hyperlipidemia, unspecified Medications: New cholecalciferol (vitamin D3) 1,250 mcg PO QWEEK 13 caps 0RF 3 months E55.9 - Vitamin D deficiency, unspecified Refilled albuterol sulfate 90 mcg/actuation (ProAir RespiClick) 2 inhalations inhalation Q6H PRN 1 ea 5RF shortness of breath or wheezing Discontinued albuterol sulfate 90 mcg/actuation Patient wants ProAir HFA Discontinued Reason: Duplicate 2 puffs inhalation Q6H PRN 8.5 grams 0RF shortness of breath or wheezing
[2025-07-18 16:07] VITALS: BP 112/80; PULSE 89; RESP 16; O2SAT 100; BMI 28.7
--- OUTSIDE RECORDS SUMMARY | 2025-07-18 19:13 | XMS_ITS | Patient Health Record ---
Author Organization [facility] enter Address [address] [place] [id number] Support Name Relationship Address Phone Miky Quigley Guarantor Unknown [phone] Reason For Referral No Information Immunizations Vaccine Route Administration Date Status Comme nts COVID-19 Vaccine(Moderna) 2nd dose Unknown 02/14/2021 Administered Per verbal repor t of pt COVID-19 Vaccine(Moderna) 1st dose IM Intramuscular 01/14/2021 Administered Plan Of Treatment No Information Insurance Providers Payer Name Payer Address Payer Phone Subscriber Number Group Number Insured Name Patient Relationship to Insured Coverage Start Date Coverage End Date Medicare A NGS PPS UB [address] [place] [id number] Miky Quigley Self - patient is the insured
--- OUTSIDE RECORDS SUMMARY | 2025-07-18 19:13 | XMS_ITS | Clinical Summary ---
[facility] Address [address] [place] [address] Care Team Providers Care Nurse Extern Name Role Phone Lenny Louie MD Primary Care Provider [phone] Surgical History Surgery Date Site/Laterality Comments SECTION PROCEDURE: HISTORICAL DELIVERY; COMMENT: two Medical History Medical History Date Comments Asthma DX:Asthma Family History Medical History Relation Name Comments Celiac disease Father Coronary artery disease Father's side 1 u ncles with [place] Celiac disease Sister 1 Breast cancer Neg [...] Cervical Cancer Screening: P ap Smear 2002 HPV Vaccines (1 - 3-dose SCD M series) 2008 HIV Screening 09/16/2022 Hepatitis C Screening 09/16/2022 Social Influencers of Health Screening 09/16/2022 Depression Screening 10/04/2024 COVID-19 Vaccine (2023-2 5 season) 2025 Influenza Vaccine (#1) 2025 07/19/2008 RSV Immunization Adult Patie nts (1 - 1-dose 75+ series) 2056 HIB Vaccines Aged Out No longer eligi [...] age to complete this topic Care Teams Nurse Extern Relationship Specialty Start Date End Date Lenny Louie MD [address] [place] [address] Dr [address] [place] PCP - General 01/20/24
--- OUTSIDE RECORDS SUMMARY | 2025-07-18 19:13 | XMS_ITS | Clinical Summary ---
Author Organization [facility] Address [address] [place] [address] Care Team Providers Care Metal Mixer Name Role Phone Lenny Louie MD Primary Care Provider [phone] Allergies Active Allergy Reactions Criticality Noted Date [...] age to complete this topic Care Teams Metal Mixer Relationship Specialty Start Date End Date Lenny Louie MD [address] [place] [address] [place] [id number] PCP - General Internal Medicine 01/20/24
== END 2025-07-18 16:44 | disposition home or self-care (01) ==
LOC: HO.HMCC 16:01
PROVIDERS: PCP Internal Medicine; Visit Provider Internal Medicine
DX: Z00.01 Encounter for general adult medical examination with abnormal findings (principal); E55.9 Vitamin D deficiency, unspecified; E78.5 Hyperlipidemia, unspecified; Z91.013 Allergy to seafood; F41.8 Other specified anxiety disorders; J30.9 Allergic rhinitis, unspecified; H10.10 Acute atopic conjunctivitis, unspecified eye; J45.20 Mild intermittent asthma, uncomplicated; G47.00 Insomnia, unspecified; Z71.89 Other specified counseling; M47.816 Spondylosis without myelopathy or radiculopathy, lumbar region; Z23 Encounter for immunization

== ENCOUNTER → 2025-07-18 16:00 | Outpatient (BNVA) | payer OTHER, SELFPAY | PROVIDERS: PCP Internal Medicine; Visit Provider Internal Medicine | DX: Z00.01 Encounter for general adult medical examination with abnormal findings (principal); E55.9 Vitamin D deficiency, unspecified; E78.5 Hyperlipidemia, unspecified; J30.9 Allergic rhinitis, unspecified; F41.8 Other specified anxiety disorders; H10.10 Acute atopic conjunctivitis, unspecified eye; J45.20 Mild intermittent asthma, uncomplicated; G47.00 Insomnia, unspecified; M47.816 Spondylosis without myelopathy or radiculopathy, lumbar region; Z23 Encounter for immunization; Z71.89 Other specified counseling; Z91.013 Allergy to seafood | CPT/HCPCS: 90471; 90656; 96127; 99396; 99497 ==